=== PATIENT | female | born 1995 | race African-American/Black ===

== ENCOUNTER 2018-02-16 23:42 | Emergency (ER) | payer OTHER ==
[~2018-02-16] VITALS: Ht 147.3 cm; Wt 77.1 kg
[2018-02-16 23:50] VITALS: BP 129/72
[2018-02-17] MEDS ORDERED: IBUPROFEN 400 MG TABLET. PO ONE
--- NOTE | 2018-02-17 00:26 | PHYS DOC ---
Past Medical History Past Medical History: No Pertinent History Past Surgical History: No Surgical History Alcohol Use: None Drug Use: None Adult General Chief Complaint Chief Complaint: ANKLE PROBLEM [facility] HPI Patient is a 22 year old female who presents with ankle pain to the left ankle after she fell just prior to arrival on an ice covered parking lot. She came directly to the emergency department. She did not try [id number] pain medication. She states that it is painful to bear weight on that extremity. Review of Systems Review of Systems Constitutional: Denies fever or chills [] Respiratory: Denies cough or shortness of breath [] Cardiovascular: No additional information not addressed in HPI [] Musculoskeletal: See history of present illness Integument: Denies rash or skin lesions [] Neurologic: Denies headache, focal weakness or sensory changes [] Endocrine: Denies polyuria or polydipsia [] All other systems were reviewed and found to be within normal limits, except as documented in this note. Current Medications Current Medications Current Medications Medications (Trade) Dose Ordered Sig/Jonathan Start Time Stop Time Status Last Admin Dose Admin Ibuprofen (Motrin) 800 mg 1X ONCE 02/17/18 00:00 02/17/18 00:01 DC 02/17/18 00:00 800 MG Allergies Allergies Allergies Coded Allergies Type Severity Reaction Last Updated Verified No Known Drug Allergies 02/16/18 No Physical Exam Physical Exam Constitutional: Well developed, well nourished, no acute distress, non-toxic appearance. [] Cardiovascular:Heart rate regular rhythm, no murmur [] Lungs & Thorax: Bilateral breath sounds clear to auscultation [] Abdomen: Bowel sounds normal, soft, no tenderness, no masses, no pulsatile masses. [] Skin: Warm, dry, no erythema, no rash. [] Back: No tenderness, no CVA tenderness. [] Extremities: tenderness and mild edema to the left ankle over the lateral malleolus, no gross deformities, ROM slightly decreased due to pain Neurologic: Alert and oriented X 3, normal motor function, normal sensory function, no focal deficits noted. [] Psychologic: Affect normal, judgement normal, mood normal. [] Current Patient Data Vital Signs Vital Signs Date Time Temp Pulse Resp B/P (MAP) Pulse Ox O2 Delivery O2 Flow Rate FiO2 02/16/18 23:50 97.8 92 12 129/72 (91) 100 Room Air 97.8 EKG EKG [] Radiology/Procedures Radiology/Procedures [] Course & Med Decision Making Course & Med Decision Making Pertinent Labs and Imaging studies reviewed. (See chart for details) The patient was given a dose of ibuprofen in the emergency department. She was placed in an Tommy wrap for comfort and is to follow-up with orthopedics if not improving in 2-3 days. She is in agreement with this plan. Dragon Disclaimer Dragon Disclaimer This electronic medical record was generated, in whole or in part, using a voice recognition dictation system. Departure Departure Impression: Primary Impression: Sprain and strain of ankle Disposition: HOME, SELF-CARE Condition: STABLE Referrals: JENN GABRIEL MD Patient Instructions: Ankle Sprain, Elastic Bandage and RICE Additional Instructions: RICE the extremity. You may take ibuprofen or Tylenol for pain. Follow up with orthopedics if not improving in 2-3 days. JULIAN JAMA APRN Feb 17, 2018 00:26
--- NOTE | 2018-02-17 00:30 | RAD ---
Left ankle 3 views. HISTORY: Fell in parking lot, lateral swelling, decreased weight-bearing 3 views were taken of the left ankle. There is not evidence of an acute fracture or osseous abnormality. IMPRESSION: 1. No fracture noted in the left ankle. Electronically signed by: Patrick Murray MD (02/17/2018 12:26 AM) [facility]
== END 2018-02-17 00:39 | disposition home or self-care (01) ==
LOC: ER 02-17 00:27
DX: S93.402A Sprain of unspecified ligament of left ankle, initial encounter (principal); W00.0XXA Fall on same level due to ice and snow, initial encounter; Y93.89 Activity, other specified; Y92.481 Parking lot as the place of occurrence of the external cause; Y99.8 Other external cause status
CPT/HCPCS: 73610; 99283